=== PATIENT | male | born 1930 | race Caucasian/White ===

== ENCOUNTER 2018-05-24 14:46 | Inpatient (IN) | payer BC ==
[~2018-05-24] VITALS: Ht 170.2 cm; Wt 77.3 kg
[~2018-05-24 14:46] MED LIST: APIX2.5T PO; FURO40TA4 PO; LISI30TA4 PO; METO50TA17 PO; MULT1CAP34 PO; OMEP20TA23 PO; POTA-82 PO; SIMV40TA4 PO
[2018-05-24 16:35] LABS: BASOPHILS # (AUTO) 0.2 X10'3 (0-0.2); BASOPHILS % (AUTO) 1.1 % (0-1); EOSINOPHILS % (AUTO) 0.2 % (0-6); HEMATOCRIT 25.7 % (42.0-52.0); HEMOGLOBIN 8.8 g/dl (14.0-17.9); LYMPHOCYTES # (AUTO) 1.6 X10'3 (1.1-4.8); LYMPHOCYTES % (AUTO) 10.7 % (21-51); MEAN CORPUSCULAR HEMOGLOBIN 29.4 PG (27.0-31.0); MEAN CORPUSCULAR HGB CONC 34.2 g/dL (33.0-36.5); MEAN PLATELET VOLUME 8.6 FL (7.4-10.4); MONOCYTES # (AUTO) 0.9 X10'3 (0-0.9); MONOCYTES % (AUTO) 5.9 % (2-12); NEUTROPHILS # (AUTO) 12.2 X10'3 (1.8-7.7); NEUTROPHILS % (AUTO) 82.1 % (42-75); PLATELET COUNT 338 X10'3 (140-440); RED BLOOD COUNT 2.99 X10'6 (4.70-6.10); RED CELL DISTRIBUTION WIDTH 21.2 % (11.5-14.5); WHITE BLOOD COUNT 14.9 X10'3 (4.5-11.0)
[2018-05-24 16:51] LABS: ALANINE AMINOTRANSFERASE 22 U/L (12-78); ALBUMIN 3.5 G/DL (3.4-5.0); ALBUMIN/GLOBULIN RATIO 1.1 (1.1-1.5); ALKALINE PHOSPHATASE 74 IU/L (46-116); ANION GAP 10 (8-16); ASPARTATE AMINO TRANSFERASE 16 U/L (10-37); BILIRUBIN,TOTAL 0.5 MG/DL (0.1-1.0); BLOOD UREA NITROGEN 37 MG/DL (7-18); BUN/CREATININE RATIO 15.9 (5.4-32.0); CALCIUM 8.9 MG/DL (8.5-10.1); CHLORIDE 102 MMOL/L (99-107); CREATININE 2.33 MG/DL (0.60-1.10); GLUCOSE 213 MG/DL (70-104); POTASSIUM 4.6 MMOL/L (3.5-5.1); SODIUM 139 MMOL/L (135-145); TOTAL PROTEIN 6.6 G/DL (6.4-8.2); eGFR 27 ML/MIN
[2018-05-24 16:52] LABS: TOTAL CELLS COUNTED 100
[2018-05-24 16:53] LABS: ANISOCYTOSIS 3+; PLATELET ESTIMATE NORMAL; POLYCHROMASIA 1+; TOXIC GRANULATION 2+
[2018-05-24 16:54] LABS: ELLIPTOCYTES 2+; LARGE PLATELETS FEW
[2018-05-24] MEDS ORDERED: normal saline 1000ML IV soln IVB ONE (19:00)
[2018-05-24] MEDS ORDERED: GLIP2.5T3 PO (19:28)
[2018-05-24] MEDS ORDERED: vancomycin/NS 1 GM ADD-VANTAGE 250 ML IV SCH (20:00)
--- NOTE | 2018-05-24 20:47 | NUR ---
PT DENIES NEEDS AT THIS TIME. HE IS RESTING ON THE HOSPITAL BED. IV ABX INFUSING. WILL CONTINUE TO MONITOR.
[2018-05-24] MEDS ORDERED: acetaminophen 325mg tablet PO PRN (20:50)
[2018-05-24] MEDS ORDERED: mag hydrox/Alum hydrox/simeth 30ml oral suspension PO PRN (20:50)
[2018-05-24] MEDS ORDERED: magnesium hydroxide 30ml (MOM) UD suspension PO PRN (20:50)
[2018-05-24] MEDS ORDERED: ondansetron/PF 4mg/2ml inj IV PRN (20:50)
[2018-05-24] MEDS ORDERED: insulin Lispro (HumaLOG) vial - multi-dose SQ SCH (20:55)
[2018-05-24] MEDS ORDERED: glucagon, human recombinant 1mg kit SUBCUT PRN (20:55)
[2018-05-24] MEDS ORDERED: dextrose ORAL solution 15 GM/59 ML bottle PO PRN ×2 (20:55)
[2018-05-24] MEDS ORDERED: dextrose 50%-water 50ml dispensing syringe IV PRN ×2 (20:55)
[2018-05-24] MEDS ORDERED: MESSAGE TO PHARMACY PO ONE (20:55)
[2018-05-24] MEDS ORDERED: atorvastatin 20mg tablet PO SCH (21:00)
[2018-05-24] MEDS ORDERED: insulin glargine (Lantus) pen - multi-dose SQ SCH (21:00)
[2018-05-24] MEDS: normal saline 1000ml 1,000 ML IV SCH (21:10)
--- NOTE | 2018-05-24 21:55 | NUR ---
registration not available to lock up $ at this time. I need to get pt upstairs secondary to needing the room. pt taken upstairs and registration notified of the need to go upstairs to get pts $ to lock up
[2018-05-24 22:39] VITALS: BP 136/52
[2018-05-25] MEDS: normal saline 1000ml 1,000 ML IV SCH (05:11)
[2018-05-25 06:00] VITALS: BP 135/42
--- NOTE | 2018-05-25 06:25 | NUR ---
Problems reprioritized. Patient report given, questions answered & plan of care reviewed with Diamond LIZ.
[2018-05-25 06:49] LABS: BASOPHILS # (AUTO) 0.2 X10'3 (0-0.2); BASOPHILS % (AUTO) 1.6 % (0-1); EOSINOPHILS % (AUTO) 0.4 % (0-6); HEMOGLOBIN 7.9 g/dl (14.0-17.9); LYMPHOCYTES # (AUTO) 1.6 X10'3 (1.1-4.8); LYMPHOCYTES % (AUTO) 14.7 % (21-51); MEAN CORPUSCULAR HEMOGLOBIN 29.6 PG (27.0-31.0); MEAN CORPUSCULAR HGB CONC 34.2 g/dL (33.0-36.5); MEAN CORPUSCULAR VOLUME 86.4 FL (78-98); MEAN PLATELET VOLUME 8.5 FL (7.4-10.4); MONOCYTES # (AUTO) 0.6 X10'3 (0-0.9); MONOCYTES % (AUTO) 5.9 % (2-12); NEUTROPHILS # (AUTO) 8.3 X10'3 (1.8-7.7); NEUTROPHILS % (AUTO) 77.4 % (42-75); PLATELET COUNT 296 X10'3 (140-440); RED BLOOD COUNT 2.67 X10'6 (4.70-6.10); RED CELL DISTRIBUTION WIDTH 21.1 % (11.5-14.5); WHITE BLOOD COUNT 10.7 X10'3 (4.5-11.0)
[2018-05-25 07:06] LABS: ALANINE AMINOTRANSFERASE 19 U/L (12-78); ALBUMIN 3.1 G/DL (3.4-5.0); ALBUMIN/GLOBULIN RATIO 1.1 (1.1-1.5); ALKALINE PHOSPHATASE 70 IU/L (46-116); ANION GAP 11 (8-16); ASPARTATE AMINO TRANSFERASE 15 U/L (10-37); BILIRUBIN,TOTAL 0.4 MG/DL (0.1-1.0); BLOOD UREA NITROGEN 38 MG/DL (7-18); BUN/CREATININE RATIO 18.8 (5.4-32.0); CALCIUM 8.6 MG/DL (8.5-10.1); CHLORIDE 107 MMOL/L (99-107); CREATININE 2.02 MG/DL (0.60-1.10); GLUCOSE 127 MG/DL (70-104); POTASSIUM 3.8 MMOL/L (3.5-5.1); SODIUM 142 MMOL/L (135-145); TOTAL CARBON DIOXIDE 24.1 MMOL/L (24-32); TOTAL PROTEIN 5.9 G/DL (6.4-8.2); eGFR 32 ML/MIN
[2018-05-25] MEDS ORDERED: lisinopril 10 MG tablet PO SCH (08:00)
[2018-05-25] MEDS ORDERED: metoprolol tartrate 50mg tablet PO SCH (08:00)
[2018-05-25] MEDS ORDERED: pantoprazole 40mg Tablet.DR PO SCH (08:00)
[2018-05-25] MEDS ORDERED: apixaban 2.5mg tablet PO SCH (08:00)
[2018-05-25 10:00] VITALS: BP 113/59
[2018-05-25] MEDS ORDERED: sulfamethoxazole/trimethoprim DS (800/160mg) tablet PO SCH (10:05)
[2018-05-25 10:33] LABS: PLATELET ESTIMATE NORMAL
[2018-05-25 10:34] LABS: ANISOCYTOSIS 3+; ELLIPTOCYTES 1+
[2018-05-25] MEDS ORDERED: BACDS PO (11:15)
--- NOTE | 2018-05-25 14:04 | NUR ---
DM consult: Pt with A1c 7.8 seen at bedside. Pt states he sees an MD q 3 months, takes his DM meds per rx, and checks just his BG levels every once in awhile. Pt admit with left arm cellulitis. Pt given written and verbal protein and DM ed with referral to outpatient DM class. All of patient's questions answered at this time. Pt states he has been having diarrhea since admit, discussed nutrition therapy for diarrhea. RD contact information provided. Will remain available. Addendum: 05/25/18 at [address] Amended: Links added.
[2018-05-27] MEDS ORDERED: VANCOMYCIN LEVEL IV ONE (19:30)
== END 2018-05-25 14:15 | disposition home or self-care (01) | DRG 603 ==
LOC: ER 14:46 → ED HOLD 20:46 → ORTHO 4S 21:59
PROVIDERS: ADMIT Internal Medicine; ATTEND Internal Medicine
DX: L03.114 Cellulitis of left upper limb (principal); D64.9 Anemia, unspecified; E11.22 Type 2 diabetes mellitus with diabetic chronic kidney disease; E86.0 Dehydration; I12.9 Hypertensive chronic kidney disease with stage 1 through stage 4 chronic kidney disease, or unspecified chronic kidney disease; I48.91 Unspecified atrial fibrillation; K21.9 Gastro-esophageal reflux disease without esophagitis; N18.3 Chronic kidney disease, stage 3 (moderate); F17.210 Nicotine dependence, cigarettes, uncomplicated; Z79.01 Long term (current) use of anticoagulants; Z79.899 Other long term (current) drug therapy; Z85.820 Personal history of malignant melanoma of skin; Z87.01 Personal history of pneumonia (recurrent); Z83.3 Family history of diabetes mellitus
CPT/HCPCS: 36415; 80053; 82948; 83036; 85025; 87040; 87070; 96365; 99285; G0378; J1815; J3370; J7030